=== PATIENT | male | born 1945 | race Caucasian/White ===

== ENCOUNTER 2024-07-03 20:52 | Emergency (ER) | payer MEDICARE, SELFPAY ==
--- NOTE | ~2024-07-03 | XR_ITS ---
CLINICAL HISTORY: fall 3 view right wrist Comparison: None Findings: No fractures or dislocations. No significant loss of joint space, osteophyte, or erosions. No radiopaque foreign body. Mildly diffuse soft tissue swelling. IMPRESSION: 1. No acute fracture This document has been electronically signed by: Ilya Valdovinos MD on 07/03/2024 22:13:03
--- NOTE | ~2024-07-03 | CT_ITS ---
CLINICAL HISTORY: fall CT cervical spine without contrast Comparison: None Findings: Streak artifact noted. Exaggeration of the cervical lordosis. Osteopenia. Multilevel spondylosis with osteophytosis, uncovertebral hypertrophy, facet arthropathy and degenerative disc disease. [id number] spinal canal narrowing at C5-C6 with severe bilateral foraminal stenoses. No acute fractures or dislocations. Soft tissues of the neck are normal. Biapical pleural nodularity and thickening with bronchiectasis calcifications comparison with prior imaging if available advised. IMPRESSION: No acute findings. Additional findings as described. This document has been electronically signed by: Ilya Valdovinos MD on 07/03/2024 22:19:09
--- NOTE | ~2024-07-03 | XR_ITS ---
CLINICAL HISTORY: fall 3 view, pelvis and bilateral hips Comparison: None Findings: No acute fracture or malalignment. Degenerative changes throughout the SI joints, pubic symphysis and hips bilaterally. The soft tissues are unremarkable. IMPRESSION: No acute findings. This document has been electronically signed by: Ilya Valdovinos MD on 07/03/2024 22:20:25
--- NOTE | ~2024-07-03 | CT_ITS ---
CLINICAL HISTORY: fall CT head without contrast Comparison: None Findings: Scattered subcortical and periventricular hypoattenuation, likely in keeping with chronic small vessel ischemic disease. Parenchymal volume loss with compensatory prominence of the ventricles and CSF spaces. No acute territorial infarction, intracranial hemorrhage, midline shift or hydrocephalus. The visualized paranasal sinuses and mastoid air cells are normal. The orbits are unremarkable. No skull fracture. IMPRESSION: 1. No acute intracranial abnormality. 2. Additional findings as described. This document has been electronically signed by: Ilya Valdovinos MD on 07/03/2024 22:18:12
[2024-07-03 21:03] VITALS: BP 138/72; PULSE 113; O2SAT 95
[2024-07-03 21:04] VITALS: BP 144/66; PULSE 97; RESP 16; TEMP 37.3; O2SAT 96; BMI 20.8
[2024-07-03 21:07] VITALS: BP 144/66; PULSE 97; RESP 16; TEMP 37.3; O2SAT 96
--- NOTE | 2024-07-04 00:28 | ED_ITS ---
HPI - Head Injury General Chief complaint: Fall Stated complaint: cabinet fell on his head, no thinners Time Seen by Provider: 07/04/24 00:03 Source: patient Mode of arrival: ambulatory Limitations: no limitations History of Present Illness ED Provider: HPI Narrative: Patient's history of chronic back pain history of throat cancer apparently was taking out the stuff from the wall cabinet which fell on him hitting his head patient complaining of pain in the right wrist hips back and headache no loss of consciousness patient ambulatory in his steady gait patient has had CT scan of the neck and head which was negative prior to my evaluation Related Data Previous Rx's ?Medication ?Instructions ?Recorded oxycodone 5 mg tablet 5 mg PO Q6H PRN pain #20 tabs 07/04/24 Allergies Allergy/AdvReac Type Severity Reaction Status Date / Time No Known Allergies Allergy Verified 07/03/24 21:06 Review of Systems Review of Systems: Yes all other systems are reviewed and are negative [facility] Social History Social History Smoked in Last 30 Days: No Use of substances other than those prescribed or required for medical reasons: Yes Substance Use Type: Marijuana Advance Directives: No Advance Directives Information Provided: No Physical Exam Vital Signs: Vital Signs: Last Vital Signs Temp 98.0 F 07/04/24 00:35 Pulse 86 07/04/24 00:35 Resp 24 H 07/04/24 00:35 BP 157/73 H 07/04/24 00:35 Pulse Ox 97 07/04/24 00:35 O2 Del Method Room Air 07/04/24 00:35 BMI result Body Mass Index 20.8 Appearance: Alert. Oriented X3. No acute distress. Eyes: No pallor or icterus HEENT: Pharynx normal. Oral Mucosa moist soft tissue swelling of the top of the head Neck: Normal inspection. Neck supple. CVS: Normal heart rate and rhythm. Pulses normal. Respiratory: No respiratory distress. Equal air entry bilateral, no wheezing/rales/rhonchi Abdomen: Soft and nontender. Bowel sounds are present, no mass palpable, no CVA tenderness Skin: Skin warm and dry. Normal skin color. Normal skin turgor. Extremities: No lower extremity edema. No calf tenderness right wrist superficial abrasion good range of movement hip good range of movement nontender pelvis stable diffuse tenderness lower back no midline tenderness Neuro: Oriented X 3. No motor deficit. No sensory deficit.No cerebellar signs , cranial nerves II-XII intact Medications Administered Discontinued Medications Generic Name Dose Route Start Last Admin Trade Name Freq PRN Reason Stop Dose Admin Oxycodone HCl 5 mg 07/04/24 00:28 07/04/24 00:37 Oxycodone Hcl Immed Release 5 Mg Tablet PO 07/04/24 00:29 5 mg ONCE ONE Administration Medical Decision Making Medical Decision Making [facility] Narrative: Patient with minor head injury CT scan head and C-spine negative x-ray of pelvis also negative does have chronic back pain will prescribe oxycodone for chronic pain Independent Interpretation I performed an independent interpretation of an: Plain X-Ray and CT Scan Interpretation: NAD Discharge Plan Discharge Clinical Impression: Minor closed head injury Patient Disposition: Home, Self-Care Instructions: Head Injury (ED) Additional Instructions: Your CT scan of the head and cervical spine and x-rays are normal Take pain medication as prescribed Follow with your PCP as needed Prescriptions: New oxycodone 5 mg tablet 5 mg PO Q6H PRN (Reason: pain) Qty: 20 0RF Rx Instructions: Partial Fill upon patient request. Print Language: Mohawk
[2024-07-04 00:35] VITALS: BP 157/73; PULSE 86; RESP 24; TEMP 36.7; O2SAT 97
[2024-07-04] MEDS: oxyCODONE HCl Immed Release 5 MG TABLET PO (00:37)
[2024-07-04 01:08] VITALS: BP 157/73; PULSE 86; RESP 24; TEMP 36.7; O2SAT 97
== END 2024-07-04 01:09 | disposition home or self-care (01) ==
PROVIDERS: Emergency Provider Internal Medicine
DX: S09.90XA Unspecified injury of head, initial encounter (principal); W20.8XXA Other cause of strike by thrown, projected or falling object, initial encounter; Y93.89 Activity, other specified; Y92.9 Unspecified place or not applicable; Y99.9 Unspecified external cause status; M25.531 Pain in right wrist; R51.9 Headache, unspecified; M54.9 Dorsalgia, unspecified; M25.552 Pain in left hip; M25.551 Pain in right hip
CPT/HCPCS: 70450; 72125; 73100; 73521; 99284

== ENCOUNTER → 2024-07-03 21:18 | Outpatient (BNV) | payer SELFPAY | PROVIDERS: Visit Provider Radiology Diagnostic Radiology | DX: M54.2 Cervicalgia (principal); M16.0 Bilateral primary osteoarthritis of hip; M25.531 Pain in right wrist | CPT/HCPCS: 70450; 72125; 73100; 73521 ==